=== PATIENT | female | born 1995 | race Caucasian/White ===

== ENCOUNTER 2024-01-11 03:20 | Emergency (ER) | payer OTHER, SELFPAY ==
[2024-01-11 03:23] VITALS: BP 155/80
[2024-01-11 03:35] VITALS: BMI 42.9
[2024-01-11 03:53] LABS: % Basophils 0.4 % (0-2); % Eosinophils 2.3 % (0-6); % Immature Granulocytes 0.5 % (0-0.5); % Monocytes 6.8 % (1.7-9.3); Absolute Eosinophils 0.3 10^3/uL (0-0.7); Absolute Immature Granulocytes 0.1 10^3/uL (0-0.05); Absolute Lymphocytes 2.1 10^3/uL (1.2-3.4); Absolute Monocytes 0.8 10^3/uL (0.1-0.6); Absolute Neutrophils 7.9 10^3/uL (1.4-6.5); Hematocrit 36.8 % (37.0-47.0); Hemoglobin 12.1 g/dL (12.0-16.0); Mean Corp Hgb Conc. 32.9 g/dL (33.0-37.0); Mean Platelet Volume 9.8 fL (7.4-10.4); Nucleated Red Blood Cells % 0 %; Platelet Count 341 10^3/uL (130-400); Red Blood Cell Count 4.66 10^6/uL (4.20-5.40); Red Cell Dist. Width 13.3 % (11.5-14.5); White Blood Cell Count 11.1 10^3/uL (4.8-10.8)
[2024-01-11 03:54] LABS: Urine Albumin Trace (Neg - Trace); Urine Bilirubin Negative (Negative); Urine Character Clear (Clear); Urine Color Yellow; Urine Glucose Negative (Negative); Urine Ketone Negative (Negative); Urine Leukocyte Negative (Negative); Urine Nitrite Negative (Negative); Urine Occult Blood Negative (Negative); Urine Urobilinogen Negative (Neg - 1+); Urine pH 6.5 (5.0-9.0)
[2024-01-11 04:03] LABS: HCG, Serum Qualitative Screen Negative
[2024-01-11 04:06] LABS: ALT (SGPT) 28 U/L (0-35); AST (SGOT) 23 U/L (14-36); Albumin 3.9 g/dl (3.5-5.0); Alkaline Phosphatase 67 U/L (38-126); Blood Urea Nitrogen 19 mg/dl (7-17); Calcium 9.1 mg/dl (8.4-10.2); Carbon Dioxide 27 mmol/L (22-30); Chloride 107 mmol/L (98-107); Estimated Creatinine Clearance > 125 ml/min; Glucose 96 mg/dl (70-99); Sodium 138 mmol/L (135-145); Total Bilirubin 0.5 mg/dl (0.2-1.3); Total Protein 6.8 g/dl (6.3-8.2); eGFR > 60.00
[2024-01-11 05:11] VITALS: BP 108/58
--- NOTE | 2024-01-11 05:29 | ED.GENMED ---
History of Present Illness
General
Chief Complaint: Flank Pain
Source: patient
Exam Limitations: none
Time Seen by Provider: 01/11/24 03:41
Nursing documentation reviewed up to this point in time: agreed with
Travel History
Have you had any contact with someone who has COVID-19?: No
Do you have any symptoms of coronavirus? Fever > 100 degrees, chills, cough, shortness of breath, sore throat, loss of taste or smell, muscle aches, or headache?: No
History of Present Illness
History of Present Illness:
This is a 28-year-old overweight female who has history of mild intermittent asthma, history of PCOS who complains of right lateral flank pain that woke her from sleep around 2 AM. Right lateral flank pain is much worse with movement, worse with
bending and rotation of her trunk, improves when she is sitting or lying still. She does admit to brief nausea but no vomiting. No history of similar episodes in the past. She denies dysuria and urgency and or hematuria, denies fever nor chills,
no diarrhea or constipation. She denies cough or shortness of breath nor chest pain.
She did take ibuprofen 800 mg around 2:15 AM with moderate improvement in pain.
She does admit to frequent bending, lifting, stretching over the past several days as she recently relocated to this area.
Last menstrual period December 24, normal and on time. She does have history of PCOS, menses are occasionally irregular but she denies risk of .
She takes no medicines on a daily basis.
Past History
Past History
ED Past Medical History: Asthma and Other (PCOS, obesity)
ED Past Surgical History: None
Social History
Tobacco: Non-smoker
Alcohol: None
Personal:
Living: with family
Employment: Not employed
Family History
Family History: Other (Noncontributory)
Phy Exam
Physical Exam
Physical Exam:
GENERAL: 28-year-old obese female appears her stated age, bright and alert, pleasant, easily communicative and appears in no acute distress. is accompanying.
EYE: anicteric
NECK: Supple, nontender, no meningismus, no significant adenopathy.
ENT: oral mucosa is moist. No rhinorrhea.
CARDIAC: Regular rate and rhythm. no murmur.
LUNGS: Clear breath sounds bilaterally, no acute respiratory distress, no wheezes/rales/rhonchi
ABDOMEN: Rotund, soft, nondistended, mild to moderate tenderness right lateral flank region, no r/g, mild right CVA tenderness to percussion. Normoactive BS.
NEUROLOGICAL: Alert and oriented x3, no focal neuro deficits. Gait is andrade and steady.
SKIN: Warm and dry, normal color, skin intact. No rash.
MUSCULOSKELETAL: No C/C/E. peripheral pulses are full and equal b/l. No palpable tenderness.
PSYCH: Normal and appropriate interaction.
Course
Orders/Labs/Results
Orders:
Orders
01/11/24 03:28
Test Result ONCE
01/11/24 03:45
Complete Blood Count/With Diff Urgent
Comprehensive Metabolic Panel Urgent
HCG, Serum Qualitative Screen Urgent
Urinalysis Reflex To Culture Urgent
Date Specimen was Collected: 01/11/24
Time Specimen was Collected: 03:28
01/11/24 04:12
CT Abd/pel Without Iv Or Oral Urgent
Comment:
Reason For Exam: Acute R flank pain
Abnormal Lab Results
01/11/24
03:45
WBC 11.1 H 10^3/uL
(4.8-10.8)
Hct 36.8 L %
(37.0-47.0)
MCV 79.0 L fL
(81.0-99.0)
MCH 26.0 L pg
(27.0-31.0)
MCHC 32.9 L g/dL
(33.0-37.0)
Abs Immat Gran (auto) 0.1 H 10^3/uL
(0-0.05)
Absolute Neuts (auto) 7.9 H 10^3/uL
(1.4-6.5)
Absolute Monos (auto) 0.8 H 10^3/uL
(0.1-0.6)
Lymphocytes % 19.0 L %
(20.5-51.1)
BUN 19 H mg/dl
(7-17)
Creatinine 0.5 L mg/dL
(0.6-1.0)
01/11/24 03:45
01/11/24 03:45
Vital Signs
Initial and Last Documented VS:
Initial Vital Signs
Temp Pulse Resp BP Pulse Ox
97.6 F 104 22 155/80 100
01/11/24 03:23 01/11/24 03:23 01/11/24 03:23 01/11/24 03:23 01/11/24 03:23
Last Documented Vital Signs
Temp Pulse Resp BP Pulse Ox
97.6 F 78 16 108/58 100
01/11/24 03:23 01/11/24 05:11 01/11/24 05:11 01/11/24 05:11 01/11/24 05:11
MDM/Problems Addressed
Differential Diagnosis Includes:
Concern for renal colic/ureteric stone on the right, pyelonephritis, musculoskeletal flank pain. Prodromal pain of herpes zoster is much less likely. Patient has had no shortness of breath, no cough, no fever and lungs are clear to auscultation,
pneumonia, pleural effusion is much less likely. No risk factors for thromboembolism.
Will check labs, urinalysis and will plan for CT abdomen and pelvis.
Currently comfortable with improvement in pain after ibuprofen at home.
*Radiology
Radiology exam reviewed: radiology read reviewed (CT abdomen pelvis is unremarkable.)
*Pulse Oximetry
Patient hypoxic: no
*Critical Care Note
Total Time (30-74mins, 75-104mins- exclusive of procedures): Not Applicable
Update Note
Update Note:
Labs are unremarkable save for minimally elevated white blood cell count of 11.1. Urinalysis is clear.
CT abdomen pelvis is unremarkable, no acute intra-abdominal pathology.
History and exam most consistent with musculoskeletal right flank pain.
Pain is markedly improved with ibuprofen patient had taken at home.
Recommend she continue ibuprofen 4 times daily as needed for pain, local warm compresses, rest.
Prompt follow-up with PCP for recheck.
ED Attending Note
-
Portions of this chart may have been created with voice recognition software.� Occasional wrong word or��sound alike� substitutions may have occurred due to the inherent limitations of voice recognition software.
Discharge Plan
Departure
Patient Disposition: Home (Routine Discharge)
Date of Disposition: 01/11/24
Time of Disposition: 05:29
Patient with high blood pressure during this ER visit?: No
Condition: Good
Discharge Problem:
Muscular abdominal pain in right flank
Instructions: Abdominal Muscle Strain (DC), Flank Pain (DC)
Prescriptions:
No Action
albuterol sulfate 90 mcg/actuation Hfa Aerosol Inhaler
2 puff INHALATION QID PRN (Reason: asthma)
Referrals:
Shama Mclean, DO [Family Provider] - Call in 1-3 days for appt
Activity Restrictions/Additional Instructions:
Continue ibuprofen 800 mg every 6 hours as needed for pain.
Avoid heavy lifting at least over the next 5 to 7 days.
You can apply local heat to your right flank region.
Follow-up with your primary care physician this week for recheck.
Interventions
Interventions:
*Risk Screen - Suicide Last Done: 01/11/24 03:23
*General Assessment Last Done: 01/11/24 03:52
*Neglect/Abuse Screening Last Done: 01/11/24 03:23
ED- Fall Risk Assessment Last Done: 01/11/24 03:52
*ED COVID-19 Vaccine History Last Done: 01/11/24 03:43
*Nursing Disposition Last Done: 01/11/24 05:55
GM-Uczbto-Qsftkoueaa Assessment Last Done: 01/11/24 03:52
ED-Female Genitourinary Assessment Last Done: 01/11/24 03:52
Discharge Date and Time
Discharge Date/Time: 01/11/24 05:55
== END 2024-01-11 05:55 | disposition home or self-care (01) ==
LOC: EMR 03:20
PROVIDERS: EMERGENCY PHYSICIAN Emergency Medicine; FAMILY PHYSICIAN Family Medicine
DX: R10.9 Unspecified abdominal pain (principal); R11.0 Nausea
CPT/HCPCS: 99284; 74176; 80053; 81003; 84703; 85025

== ENCOUNTER 2024-12-05 00:36 | Emergency (ER) | payer OTHER, SELFPAY ==
[2024-12-05 00:37] VITALS: BP 134/84
[2024-12-05 01:18] VITALS: BMI 36.9
[2024-12-05 01:20] VITALS: BP 118/81
--- NOTE | 2024-12-05 02:11 | ED.GENMED ---
History of Present Illness
General
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
Source: patient and family
Exam Limitations: none
Time Seen by Provider: 12/05/24 01:10
Nursing documentation reviewed up to this point in time: agreed with
History of Present Illness
History of Present Illness:
Pleasant 29-year-old female presents to the emergency department with a Bartholin cyst. She states that she has had it for the last 4 days. She notes that has been getting bigger. She is anxious about having this. She has had Bartholin cyst in
the past and they have spontaneously resolved. Is followed by [facility]. She saw them last week just prior to the onset of symptoms. Denies fever, chills, nausea or vomiting.
Past History
Past History
ED Past Medical History: Asthma and Other (PCOS, obesity)
ED Past Surgical History: None
Social History
Tobacco: Non-smoker
Alcohol: None
Personal:
Living: with family
Employment: Not employed
Family History
Family History: Other (Noncontributory)
Phy Exam
General Physical Exam
General Presentation: well appearing
General age: appears stated age
General Skin: warm
General Habitus: normal
General Mental: alert
Pulmonary Exam
Pulmonary Exam: lungs clear and no respiratory distress
Psychiatric Exam
Psychiatric Exam: normal mood/affect
Course
Orders/Labs/Results
Orders:
Orders
12/05/24 02:07
Test Result ONCE
12/05/24 02:15
Test Result ONCE
12/05/24 02:21
HCG, Urine Qualitative Screen Urgent
Date Specimen was Collected: 12/05/24
Time Specimen was Collected: 02:20
Urinalysis Reflex To Culture Urgent
Date Specimen was Collected: 12/05/24
Time Specimen was Collected: 02:20
Urine Microscopic Reflex Cult Urgent
Abnormal Lab Results
12/05/24
02:21
Ur Occult Blood Reflex 1+ A
(Negative)
Vital Signs
Initial and Last Documented VS:
Initial Vital Signs
Temp Pulse Resp BP Pulse Ox
97.6 F 88 18 134/84 100
12/05/24 00:37 12/05/24 00:37 12/05/24 00:37 12/05/24 00:37 12/05/24 00:37
Last Documented Vital Signs
Temp Pulse Resp BP Pulse Ox
97.6 F 78 18 118/75 100
12/05/24 00:37 12/05/24 01:20 12/05/24 00:37 12/05/24 03:00 12/05/24 03:00
*Critical Care Note
Total Time (30-74mins, 75-104mins- exclusive of procedures): Not Applicable
Update Note
Update Note:
After physical exam with female nurse in the room, there does not appear to be an indurated abscess or cyst on the vulva. It is enlarged and slightly erythematous but shows no signs of cellulitis. There does not appear to be a drainable mass at
this time. Patient will continue with sitz bath's. Since she has had a Bartholin's gland cyst in the past I will start her on Bactrim. She will follow-up with her [facility] at [facility]. She will call the office
ED Attending Note
-
Portions of this chart may have been created with voice recognition software.� Occasional wrong word or��sound alike� substitutions may have occurred due to the inherent limitations of voice recognition software.
Discharge Plan
Departure
Patient Disposition: Home (Routine Discharge)
Date of Disposition: 12/05/24
Time of Disposition: 03:12
Patient with high blood pressure during this ER visit?: No
Condition: Good
Discharge Problem:
Bartholin gland cyst
Instructions: Bartholin gland cyst
Prescriptions:
New
sulfamethoxazole-trimethoprim [Bactrim DS] 800-160 mg tablet
1 tab PO BID Qty: 14 0RF
No Action
albuterol sulfate 90 mcg/actuation Hfa Aerosol Inhaler
2 puff INHALATION QID PRN (Reason: asthma)
Referrals:
Leighann Munoz DO [Family Provider] -
Activity Restrictions/Additional Instructions:
Please call your [facility] in the morning to schedule a follow-up appointment.
It was a pleasure meeting you and taking part in your care. We hope for your continued healing and wellness.
Please read discharge instructions in their entirety. However, they are for general education and may not describe your exact diagnosis at discharge. Information on your ER visit and medical conditions were discussed with you along with appropriate
follow up information...
If indicated, please take your medications as instructed and indicated on discharge paperwork.
Please schedule a follow up appointment as directed. Call to schedule an appointment
Please return to the emergency department with ANY change in, persisting, or worsening of symptoms. If any of your symptoms do not improve, or persist, or become more severe within 6-12 hours, please return to the emergency department for further
care.
Please return to the emergency department if you develop a headache, neck pain/stiffness, fever greater than 100.4F, chest pain, shortness of breath, persistent nausea, vomiting, slurred speech, difficulty walking, numbness/tingling, weakness, signs
of infection or any other symptoms that are worrisome to you.
If you have any questions or concerns please do not hesitate to call the Hospital at or E-mail me directly at [email or web address]
Interventions
Interventions:
*Risk Screen - Suicide Last Done: 12/05/24 00:37
*General Assessment Last Done: 12/05/24 01:18
*Neglect/Abuse Screening Last Done: 12/05/24 00:37
ED- Fall Risk Assessment Last Done: 12/05/24 01:19
*ED COVID-19 Vaccine History Last Done: 12/05/24 01:18
*Nursing Disposition Last Done: 12/05/24 03:04
ED-Female Genitourinary Assessment Last Done: 12/05/24 01:17
Discharge Date and Time
Print Language: BRITISH
[2024-12-05 02:21] VITALS: BP 109/72
[2024-12-05 02:41] LABS: Urine Albumin Negative (Neg - Trace); Urine Bilirubin Negative (Negative); Urine Character Clear (Clear); Urine Color Yellow; Urine Glucose Negative (Negative); Urine Ketone Negative (Negative); Urine Leukocyte Negative (Negative); Urine Nitrite Negative (Negative); Urine Occult Blood 1+ (Negative); Urine Urobilinogen Negative (Neg - 1+)
[2024-12-05 02:44] LABS: HCG, Urine Qualitative Screen Negative
[2024-12-05 03:00] VITALS: BP 118/75
[2024-12-05] MEDS: BACTRIM DS 800 MG/160 MG 1 TABLET PO (03:23)
[2024-12-05 03:24] LABS: Urine Bacteria Few (Negative); Urine White Cell 0-2 /HPF (0-5)
== END 2024-12-05 03:24 | disposition home or self-care (01) ==
LOC: EMR 00:36
PROVIDERS: EMERGENCY PHYSICIAN Student in an Organized Health Care Education/Training Program; FAMILY PHYSICIAN Family Medicine
DX: N75.0 Cyst of Bartholin's gland (principal); E28.2 Polycystic ovarian syndrome; J45.909 Unspecified asthma, uncomplicated
CPT/HCPCS: 99283; 81003; 81015; 81025

== ENCOUNTER 2024-12-07 11:51 | Emergency (ER) | payer OTHER, SELFPAY ==
[2024-12-07 11:53] VITALS: BP 138/104
--- NOTE | 2024-12-07 13:30 | ED.GENMED ---
History of Present Illness
General
Chief Complaint: Headache
Source: patient
Exam Limitations: none
Time Seen by Provider: 12/07/24 13:21
Nursing documentation reviewed up to this point in time: agreed with
History of Present Illness
History of Present Illness:
29-year-old female with a past medical history of anxiety, TMJ disorder, recurrent sinus infections presents to the emergency department today with concerns of bilateral temporal headaches on and off for the past few months. Patient also associated
bilateral jaw pain as well. She reports that pain has not necessarily gotten worse since a few months ago but patient states that he became anxious about her symptoms today. Patient reports she has a family history of ruptured aneurysm in the
brain and her grandmother and patient would like to undergo further evaluation to assess this. Patient has been having issues with TMJ diagnosed with her dentist, and she feels like she has poor relief of those symptoms she has been trying Tylenol
and Motrin at home without relief and she notes that sometimes she will feel a palpable spasm of those areas. She denies any visual changes with the symptoms, any vision any double been, any nausea or vomiting, any fevers or chills, any chest pain
or shortness of breath, any pain, any abdominal pain. Patient any facial pain, sinus congestion, any cough, any flu-like
Past History
Past History
ED Past Medical History: Asthma and Other (PCOS, obesity)
ED Past Surgical History: None
Social History
Tobacco: Non-smoker
Alcohol: None
Personal:
Living: with family
Employment: Not employed
Family History
Family History: Other (Noncontributory)
Review of Systems
Review of Systems
All Other Systems: ROS reviewed and negative except as documented in HPI and ROS
Phy Exam
Physical Exam
Physical Exam:
General: Patient is well appearing and in no acute distress; non-toxic
Skin: Warm and dry, no rashes or lesions
Head: Normocephalic, atraumatic. Bilateral tenderness palpation of the TMJ joints. Palpable clicking popping noted to right TMJ. No temporal artery tenderness.
Eyes: Sclera non-icteric. EOMs intact.
Cardiac: Regular rate and rhythm, no murmurs
Peripheral Vascular: No lower extremity swelling or edema
Pulm: Normal respiratory effort, no wheezes, rales, rhonchi
Abdomen: No abdominal tenderness
Neuro: CN II-XII intact, no focal neurologic deficits.
Psychiatric: Appropriate mood and affect.
Course
Orders/Labs/Results
Orders:
Orders
12/07/24 13:44
CT Head W/o Iv Contrast Urgent
Comment:
Reason For Exam: temporal headache
12/07/24 16:01
Ibuprofen [Motrin] 600 mg PO NOW STA
Vital Signs
Initial and Last Documented VS:
Initial Vital Signs
Temp Pulse Resp BP Pulse Ox
98.3 F 105 16 138/104 100
12/07/24 11:53 12/07/24 11:53 12/07/24 11:53 12/07/24 11:53 12/07/24 11:53
Last Documented Vital Signs
Temp Pulse Resp BP Pulse Ox
98.3 F 98 15 140/92 100
12/07/24 11:53 12/07/24 16:51 12/07/24 16:51 12/07/24 16:51 12/07/24 16:51
MDM/Problems Addressed
Differential Diagnosis Includes:
Tension headache, migraine headache, TMJ syndrome, chronic sinusitis, brain tumor, MS
MDM/Problems Addressed:
29-year-old female in emergency department today with bilateral temporal headaches and jaw pain for the past few months. Physical exam, she is well-appearing and has no focal neurologic deficits. In light of her almost daily headaches and no prior
workup, and no prior history of headaches, joint sent for CAT scan which was negative for any acute intracranial abnormality. Suspect patient symptoms secondary to TMJ syndrome and possibly bruxism and/or sinuses. Patient is requesting to try a
full relaxer for her TMJ symptoms. Flexeril has been sent to patient to see. Patient stable for discharge, return precautions discussed.
*Pulse Oximetry
Patient hypoxic: no
*Critical Care Note
Total Time (30-74mins, 75-104mins- exclusive of procedures): Not Applicable
Data Reviewed
Review of Other/Old Records Reveals: Records (Reviewed previous physician documentation from 12/05/2024, patient seen for Bartholin gland cyst)
ED Attending Note
-
Portions of this chart may have been created with voice recognition software.� Occasional wrong word or��sound alike� substitutions may have occurred due to the inherent limitations of voice recognition software.
Discharge Plan
Departure
Patient Disposition: Home (Routine Discharge)
Date of Disposition: 12/07/24
Time of Disposition: 16:36
Patient with high blood pressure during this ER visit?: Yes
Condition: Good
Discharge Problem:
Tension headache, Temporomandibular joint syndrome
Instructions: Headache, Adult (DC), BLOOD PRESSURE
Prescriptions:
New
cyclobenzaprine 5 mg tablet
5 mg PO DAILY Qty: 10 0RF
No Action
albuterol sulfate 90 mcg/actuation Hfa Aerosol Inhaler
2 puff INHALATION QID PRN (Reason: asthma)
sulfamethoxazole-trimethoprim [Bactrim DS] 800-160 mg tablet
1 tab PO BID Qty: 14 0RF
Referrals:
Leighann Munoz DO [Family Provider] -
Activity Restrictions/Additional Instructions:
Cyclobenzaprine has been sent to your pharmacy. You can take 1 tablet once daily at bedtime. You can increase this to 2 tablets once daily at bedtime should you not find relief. I also recommend taking ibuprofen with this. I would start with
ibuprofen 400 mg every 4-6 hours for 3 days. You can increase this to 600 mg every 6 hours. Please do not exceed 3200 mg of ibuprofen per day.
Please follow-up with your primary care provider tomorrow as scheduled.
PLEASE RETURN EMERGENCY DEPARTMENT SHOULD YOU EXPERIENCE INTRACTABLE NAUSEA OR VOMITING, VISUAL LOSS, BLURRY VISION, WEAKNESS ON ONE SIDE OR THE OTHER, SEIZURE-LIKE ACTIVITY SYNCOPAL EPISODES, ANY OTHER SIGNS OR SYMPTOMS CONCERNING TO YOU.
Interventions
Interventions:
*Risk Screen - Suicide Last Done: 12/07/24 11:53
*Neglect/Abuse Screening Last Done: 12/07/24 11:53
*Nursing Disposition Last Done: 12/07/24 16:52
ED- Neurological Assessment Last Done: 12/07/24 14:26
Discharge Date and Time
Discharge Date/Time: 12/07/24 16:52
Print Language: WOLOF
[2024-12-07] MEDS: MOTRIN 600 MG PO (16:17)
[2024-12-07 16:51] VITALS: BP 140/92
== END 2024-12-07 16:52 | disposition home or self-care (01) ==
LOC: EMR 11:51
PROVIDERS: EMERGENCY PHYSICIAN Emergency Medicine; FAMILY PHYSICIAN Family Medicine
DX: G44.209 Tension-type headache, unspecified, not intractable (principal); M26.609 Unspecified temporomandibular joint disorder, unspecified side; F41.9 Anxiety disorder, unspecified; J45.909 Unspecified asthma, uncomplicated; E28.2 Polycystic ovarian syndrome; E66.9 Obesity, unspecified
CPT/HCPCS: 99284; 70450